=== PATIENT | female | born 1970 | race Caucasian/White ===

== ENCOUNTER 2017-11-20 18:26 | Emergency (ER) | payer OTHER ==
[2017-11-20 18:42] VITALS: BP 133/73
--- NOTE | 2017-11-20 19:15 | EDM.PDOC ---
ED HPI GENERAL MEDICAL PROBLEM - General Chief Complaint: Allergic Reaction Stated Complaint: allergic reaction Time Seen by Provider: 11/20/17 18:48 Source of Information: Reports: Patient History Limitations: Reports: No Limitations - History of Present Illness INITIAL COMMENTS - FREE TEXT/NARRATIVE: Patient is a 47-year-old female who came in with possible allergic reaction she complains of hives and itching throughout her body especially the back and arms this was probably caused by lexus wine or lip balm she has never used these products before took some Benadryl before coming in now feeling better still has some hives over her back and arms. Onset: Sudden Duration: Minutes:, Improving Location: Reports: Generalized Quality: Reports: Ache, Other (Itching) Severity: Moderate Improves with: Reports: Medication Worsens with: Reports: None Context: Reports: Activity Associated Symptoms: Reports: No Other Symptoms Generalized Pain Score (Numeric/FACES): 3 - Related Data Allergies Allergy/AdvReac Type Severity Reaction Status Date / Time kiwi Allergy Airway Verified 01/29/16 14:37 Tightness morphine Allergy Itching Verified 01/29/16 14:59 Penicillins Allergy Hives Verified 01/29/16 14:37 Home Meds: Home Meds Escitalopram [Lexapro] 20 mg PO DAILY 11/20/17 [History] Levothyroxine 25 mcg PO DAILY 11/20/17 [History] Past Medical History Neurological History: Reports: Head Trauma, Migraines Social & Family History - Tobacco Use Smoking Status *Q: Never Smoker - Recreational Drug Use Recreational Drug Use: No ED ROS ALLERGIC REACTION - Review of Systems Review Of Systems: See Below Constitutional: Reports: No Symptoms HEENT: Reports: No Symptoms Respiratory: Reports: No Symptoms Cardiovascular: Reports: No Symptoms Endocrine: Reports: No Symptoms GI/Abdominal: Reports: No Symptoms : Reports: No Symptoms Musculoskeletal: Reports: No Symptoms Skin: Reports: No Symptoms Neurological: Reports: No Symptoms Psychiatric: Reports: No Symptoms Hematologic/Lymphatic: Reports: No Symptoms Immunologic: Reports: No Symptoms ED EXAM GENERAL NO PERIP PULSE - Physical Exam Exam: See Below Exam Limited By: No Limitations General Appearance: Alert, WD/WN, No Apparent Distress Ears: Normal External Exam, Normal Canal, Hearing Grossly Normal, Normal TMs Nose: Normal Inspection, Normal Mucosa, No Blood Throat/Mouth: Normal Inspection, Normal Lips, Normal Teeth, Normal Gums, Normal Oropharynx, Normal Voice, No Airway Compromise Head: Atraumatic, Normocephalic Neck: Normal Inspection, Supple, Non-Tender, Full Range of Motion Respiratory/Chest: No Respiratory Distress, Lungs Clear, Normal Breath Sounds, No Accessory Muscle Use, Chest Non-Tender Cardiovascular: Normal Peripheral Pulses, Regular Rate, Rhythm, No Edema, No Gallop, No JVD, No Murmur, No Rub GI/Abdominal: Normal Bowel Sounds, Soft, Non-Tender, No Organomegaly, No Distention, No Abnormal Bruit, No Mass (Female) Exam: Deferred Rectal (Female) Exam: Deferred Back Exam: Other (Hives) Extremities: Other (Bilateral upper and lower extremity hives) Neurological: Alert, Oriented, CN II-XII Intact, Normal Cognition, Normal Gait, Normal Reflexes, No Motor/Sensory Deficits Skin Exam: Rash, Other (High) Lymphatic: No Adenopathy Course - Vital Signs Last Recorded V/S: Last Vital Signs Temp 98.2 F 11/20/17 18:41 Pulse 64 11/20/17 18:41 Resp 18 11/20/17 18:41 BP 133/73 11/20/17 18:41 Pulse Ox 99 11/20/17 18:41 Departure - Departure Time of Disposition: 19:18 Disposition: Home, Self-Care 01 Clinical Impression: Allergic reaction - Discharge Information Referrals: Beni Gamez MD [Primary Care Provider] - Care Plan Goals: Patient sent home on prednisone 20 twice a day for 5 days she is to follow-up with me in the office if not better return to the ER if worsening
== END 2017-11-20 19:31 | disposition home or self-care (01) ==
LOC: LL.ED 18:26
DX: T78.40XA Allergy, unspecified, initial encounter (principal); Z88.5 Allergy status to narcotic agent; Z88.0 Allergy status to penicillin; Z79.899 Other long term (current) drug therapy; X58.XXXA Exposure to other specified factors, initial encounter
CPT/HCPCS: 99283

== ENCOUNTER 2018-02-07 21:22 | Emergency (ER) | payer OTHER ==
[2018-02-07] MEDS ORDERED: Sodium Chloride 0.9% 10 ML Syringe FLUSH PRN (21:24)
[2018-02-07] MEDS ORDERED: Sodium Chloride 0.9% 1,000 ML IV ONE ×2 (21:36→23:27)
[2018-02-07] MEDS ORDERED: HYDROmorphone 1 MG/ML Syringe IVPUSH ONE (21:41)
[2018-02-07] MEDS ORDERED: diphenhydrAMINE 50 MG/ML SDV IVPUSH ONE (21:41)
[2018-02-07] MEDS ORDERED: Ondansetron 4 MG/2 ML SDV IVPUSH ONE (21:42)
--- NOTE | 2018-02-07 21:48 | EDM.PDOC ---
ED HPI GENERAL MEDICAL PROBLEM - General Chief Complaint: General Stated Complaint: abdominal pain that radiates through to back Time Seen by Provider: 02/07/18 21:23 Source of Information: Reports: Patient History Limitations: Reports: No Limitations - History of Present Illness INITIAL COMMENTS - FREE TEXT/NARRATIVE: Sudden severe abdominal pain that started around 5pm tonight. Generalized in nature. Radiates to back. Nausea present. No vomiting. Has had feeling of being more constipated recently, but has had a few soft stools over the last few days. Recent trip to [place]. Does say that she has had intermittent similar pain episodes like this in the past. None as severe as this one. Was seen once in the ER and at that time it was thought to possibly be musculo-skeletal in nature. Some episodes have lasted for several days. Has gallbadder but has had appendectomy and hysterectomy. Past medical history significant for depression/migraines. Has noted that some foods such as caba have set off heartburn like sensation and abdominal pain. Feels best when she lays on her side. Worse on her back. No fever. No changes. midline abdomen Pain Score (Numeric/FACES): 10 - Related Data Allergies Allergy/AdvReac Type Severity Reaction Status Date / Time fentanyl Allergy Itching Verified 02/08/18 00:37 kiwi Allergy Airway Verified 02/07/18 21:24 Tightness morphine Allergy Itching Verified 02/07/18 21:24 Penicillins Allergy Hives Verified 02/07/18 21:24 Home Meds: Home Meds Escitalopram [Lexapro] 20 mg PO DAILY 11/20/17 [History] Levothyroxine 25 mcg PO DAILY 11/20/17 [History] PNV95/Ferrous Fumarate/FA [ Tablet] 1 each PO DAILY 02/07/18 [History] Past Medical History Neurological History: Reports: Head Trauma, Migraines Psychiatric History: Reports: Depression Endocrine/Metabolic History: Reports: Hypothyroidism Social & Family History - Family History Family Medical History: Noncontributory Cardiac: Reports: CAD (maternal grandmother), [place] (maternal grandmother) - Tobacco Use Smoking Status *Q: Never Smoker - Recreational Drug Use Recreational Drug Use: No ED ROS GENERAL - Review of Systems Review Of Systems: See Below Constitutional: Reports: Decreased Appetite. Denies: Fever, Chills, Weakness, Fatigue, Diaphoresis, Weight Loss, Weight Gain HEENT: Reports: No Symptoms Respiratory: Reports: No Symptoms. Denies: Shortness of Breath, Pleuritic Chest Pain Cardiovascular: Reports: No Symptoms. Denies: Chest Pain, Dyspnea on Exertion, Lightheadedness GI/Abdominal: Reports: Abdominal Pain, Constipation, Decreased Appetite, Nausea. Denies: Black Stool, Bloody Stool, Diarrhea, Difficulty Swallowing, Distension, Flatus, Hematemesis, Vomiting : Reports: No Symptoms Musculoskeletal: Reports: No Symptoms Skin: Reports: No Symptoms Neurological: Reports: No Symptoms Psychiatric: Reports: No Symptoms Hematologic/Lymphatic: Reports: No Symptoms Immunologic: Reports: No Symptoms ED EXAM, GENERAL - Physical Exam Exam: See Below Exam Limited By: No Limitations General Appearance: Alert, Severe Distress Eye Exam: Bilateral Eye: EOMI, PERRL Ears: Normal External Exam, Normal Canal Nose: Normal Inspection Throat/Mouth: Normal Inspection, Normal Voice, No Airway Compromise Head: Atraumatic, Normocephalic Neck: Normal Inspection, Supple, Non-Tender, Full Range of Motion. No: Lymphadenopathy (L), Lymphadenopathy (R) Respiratory/Chest: No Respiratory Distress, Lungs Clear, Normal Breath Sounds, No Accessory Muscle Use, Chest Non-Tender Cardiovascular: Normal Peripheral Pulses, Regular Rate, Rhythm, No Edema, No Murmur Peripheral Pulses: 2+: Radial (L), Radial (R) GI/Abdominal: Soft, Tender (Very tender all 4 quadrants, more so epigastric and left upper quadrant. ). No: Guarding, Rigid, Rebound (Female) Exam: Deferred Rectal (Female) Exam: Deferred Back Exam: Normal Inspection. No: CVA Tenderness (L), CVA Tenderness (R), Muscle Spasm, Paraspinal Tenderness, Vertebral Tenderness Extremities: Normal Inspection, Normal Range of Motion, Non-Tender, No Pedal Edema, Normal Capillary Refill Neurological: Alert, Oriented, Normal Cognition, Normal Gait, No Motor/Sensory Deficits Psychiatric: Anxious Skin Exam: Warm, Dry, Intact, Normal Color EKG INTERPRETATION EKG Date: 02/07/18 Time: 21:48 Rhythm: Other (sinus bradycardia) Rate (Beats/Min): 58 [place]: Normal P-Wave: Present QRS: Normal ST-T: Normal QT: Normal Comparison: NA - No Prior EKG Course - Vital Signs Last Recorded V/S: Last Vital Signs Temp 36.6 C 02/07/18 21:29 Pulse 68 02/07/18 21:29 Resp 9 L 02/07/18 21:29 BP 180/100 H 02/07/18 21:29 Pulse Ox 100 02/07/18 21:29 - Orders/Labs/Meds Orders: Active Orders 24 hr Category Date Time Status EKG Documentation Completion [RC] ASDIRECTED Care 02/07/18 21:40 Active Abdomen Pelvis w Cont [CT] Stat Exams 02/07/18 21:40 Taken Sodium Chloride 0.9% [Normal Saline] 1,000 ml Med 02/07/18 23:27 Active IV .BOLUS Sodium Chloride 0.9% [Saline Flush] Med 02/07/18 21:24 Active 10 ml FLUSH ASDIRECTED PRN Saline Lock Insert [OM.PC] Routine Oth 02/07/18 21:25 Ordered Medication Orders Sodium Chloride (Normal Saline) 1,000 mls @ 125 mls/hr IV .BOLUS ONE Stop: 02/08/18 07:26 Last Admin: 02/07/18 23:49 Dose: 125 mls/hr Sodium Chloride (Saline Flush) 10 ml FLUSH ASDIRECTED PRN PRN Reason: Keep Vein Open Labs: Laboratory Tests 02/07/18 02/07/18 02/07/18 Range/Units 21:30 21:30 21:30 WBC 8.8 (4.0-10.2) K/uL RBC 4.25 (3.77-5.09) M/uL Hgb 13.4 (11.7-15.5) g/dL Hct 38.3 (34.0-46.0) % MCV 90.1 (84.0-98.0) fL MCH 31.5 (28.2-33.3) pg MCHC 35.0 (31.7-36.0) g/dL RDW 11.7 (11.2-14.1) % Plt Count 203 (150-350) K/uL Neut % (Auto) 65.0 (45.0-80.0) % Lymph % (Auto) 26.6 (10.0-50.0) % Ralls % (Auto) 7.6 (2.0-14.0) % Eos % (Auto) 0.7 (0.0-5.0) % Baso % (Auto) 0.1 (0.0-2.0) % Neut # (Auto) 5.71 (1.40-7.00) K/uL Lymph # (Auto) 2.34 (0.50-3.50) K/uL Ralls # (Auto) 0.67 (0.00-1.00) K/uL Eos # (Auto) 0.06 (0.00-0.50) K/uL Baso # (Auto) 0.01 (0.00-0.20) K/uL Sodium 141 (136-145) mmol/L Potassium 4.1 (3.5-5.1) mmol/L Chloride 105 (98-107) mmol/L Carbon Dioxide 28.3 (21.0-32.0) mmol/L BUN 19 H (7-18) mg/dL Creatinine 0.78 (0.51-1.17) mg/dL Est Cr Clr Drug Dosing 70.38 mL/min Estimated GFR (MDRD) > 60 mL/min Glucose 80 (74-106) mg/dL Calcium 9.0 (8.5-10.1) mg/dL Total Bilirubin 0.5 (0.2-1.0) mg/dL AST 18 (15-37) U/L ALT 28 (12-78) U/L Alkaline Phosphatase 37 L (46-116) IU/L Total Protein 7.4 (6.4-8.2) g/dL Albumin 4.1 (3.4-5.0) g/dL Amylase 41 (25-115) U/L Lipase 125 (73-393) U/L Specimen Type Urine Color Urine Appearance Urine pH (5.0-9.0) Ur Specific [place] (1.005-1.030) Urine Protein (NEGATIVE) mg/dL Urine Glucose (UA) (NEGATIVE) mg/dL Urine Ketones (NEGATIVE) mg/dL Urine Occult Blood (NEGATIVE) Urine Nitrite (NEGATIVE) Urine Bilirubin (NEGATIVE) Urine Urobilinogen (0.2-1.0) E.U./dL Ur Leukocyte Esterase (NEGATIVE) Urine RBC /HPF Urine WBC /HPF Ur Epithelial Cells /LPF Urine Bacteria (NONE TO FEW) /HPF 02/07/18 Range/Units 23:12 WBC (4.0-10.2) K/uL RBC (3.77-5.09) M/uL Hgb (11.7-15.5) g/dL Hct (34.0-46.0) % MCV (84.0-98.0) fL MCH (28.2-33.3) pg MCHC (31.7-36.0) g/dL RDW (11.2-14.1) % Plt Count (150-350) K/uL Neut % (Auto) (45.0-80.0) % Lymph % (Auto) (10.0-50.0) % Ralls % (Auto) (2.0-14.0) % Eos % (Auto) (0.0-5.0) % Baso % (Auto) (0.0-2.0) % Neut # (Auto) (1.40-7.00) K/uL Lymph # (Auto) (0.50-3.50) K/uL Ralls # (Auto) (0.00-1.00) K/uL Eos # (Auto) (0.00-0.50) K/uL Baso # (Auto) (0.00-0.20) K/uL Sodium (136-145) mmol/L Potassium (3.5-5.1) mmol/L Chloride (98-107) mmol/L Carbon Dioxide (21.0-32.0) mmol/L BUN (7-18) mg/dL Creatinine (0.51-1.17) mg/dL Est Cr Clr Drug Dosing mL/min Estimated GFR (MDRD) mL/min Glucose (74-106) mg/dL Calcium (8.5-10.1) mg/dL Total Bilirubin (0.2-1.0) mg/dL AST (15-37) U/L ALT (12-78) U/L Alkaline Phosphatase (46-116) IU/L Total Protein (6.4-8.2) g/dL Albumin (3.4-5.0) g/dL Amylase (25-115) U/L Lipase (73-393) U/L Specimen Type Urincc Urine Color Yellow Urine Appearance Clear Urine pH 6.5 (5.0-9.0) Ur Specific [place] 1.015 (1.005-1.030) Urine Protein Negative (NEGATIVE) mg/dL Urine Glucose (UA) Negative (NEGATIVE) mg/dL Urine Ketones Negative (NEGATIVE) mg/dL Urine Occult Blood Negative (NEGATIVE) Urine Nitrite Negative (NEGATIVE) Urine Bilirubin Negative (NEGATIVE) Urine Urobilinogen 0.2 (0.2-1.0) E.U./dL Ur Leukocyte Esterase Negative (NEGATIVE) Urine RBC Not seen /HPF Urine WBC 0-5 /HPF Ur Epithelial Cells Moderate H /LPF Urine Bacteria Few (NONE TO FEW) /HPF Meds: Medications Generic Name Dose Route Start Last Admin Trade Name Freq PRN Reason Stop Dose Admin Sodium Chloride 1,000 mls @ 125 mls/hr 02/07/18 23:27 02/07/18 23:49 Normal Saline IV 02/08/18 07:26 125 mls/hr .BOLUS ONE Administration Sodium Chloride 10 ml 02/07/18 21:24 Saline Flush FLUSH ASDIRECTED PRN Keep Vein Open Discontinued Medications Generic Name Dose Route Start Last Admin Trade Name Freq PRN Reason Stop Dose Admin Diphenhydramine HCl 50 mg 02/07/18 21:41 02/07/18 21:44 Benadryl IVPUSH 02/07/18 21:42 50 mg ONETIME ONE Administration Fentanyl 100 mcg 02/07/18 23:18 02/07/18 23:49 Sublimaze IVPUSH 02/07/18 23:19 100 mcg ONETIME ONE Administration Hydromorphone HCl 1 mg 02/07/18 21:41 02/07/18 21:44 Dilaudid IVPUSH 02/07/18 21:42 1 mg ONETIME ONE Administration Sodium Chloride 1,000 mls @ 999 mls/hr 02/07/18 21:36 02/07/18 21:42 Normal Saline IV 02/07/18 22:36 999 mls/hr .BOLUS ONE Administration Iopamidol 100 ml 02/07/18 23:00 02/07/18 23:08 Isovue-300 (61%) IVPUSH 02/07/18 23:01 100 ml ONETIME ONE Administration Methylprednisolone Sodium Succinate 125 mg 02/08/18 00:19 Solu-Medrol IVPUSH 02/08/18 00:20 ONETIME ONE Ondansetron HCl 4 mg 02/07/18 21:42 02/07/18 21:44 Zofran IVPUSH 02/07/18 21:43 4 mg ONETIME ONE Administration - Re-Assessments/Exams Free Text/Narrative Re-Assessment/Exam: 02/07/18 21:52 IV access obtained. Patient has had morphine in past, causes her to feel like she has insects crawling on her skin. Says she can tolerate Dilaudid. Given her level of discomfort single dose of Dilaudid ordered as well as Benadryl, Zofran. Abdominal and pelvic CT ordered. Free Text/Narrative Re-Assessment/Exam: 02/08/18 00:[address] negative for acute changes except for common bile duct being slightly prominent in size. CBC/Chem/UA unremarkable. Pain improved, but developed some pruritis from Fentanyl. Had tolerated the earlier dose of Dilaudid well however. Patient would like to go home and has an appointment to see tomorrow at clinic. She may benefit from referral to GI specialist to decide if further workup is needed. Discussed considering elimination diet to look for additional triggers for her episodes. Patient is agreeable with plan. Given Solumedrol prior to discharge to help with itching. Precautions reviewed prior to discharge. She is to follow up as needed otherwise if problems develop. Departure - Departure Time of Disposition: 01:00 Disposition: Home, Self-Care 01 Condition: Good Clinical Impression: Generalized abdominal pain of unknown etiology - Discharge Information Instructions: Abdominal Pain, Adult Forms: ED Department Discharge Additional Instructions: Follow up with tomorrow at your scheduled appointment. Discuss possible referral to GI specialist to review your abdominal pain episodes as well as mildly prominent common bile duct. Consider elimination diet as discussed to look for possible food triggers for your episodes. Follow up otherwise as needed if you develop additional problems. - My Orders Last 24 Hours: My Active Orders 02/07/18 21:24 Sodium Chloride 0.9% [Saline Flush] 10 ml FLUSH ASDIRECTED PRN 02/07/18 21:25 Saline Lock Insert [OM.PC] Routine 02/07/18 21:40 EKG Documentation Completion [RC] ASDIRECTED Abdomen Pelvis w Cont [CT] Stat 02/07/18 23:27 Sodium Chloride 0.9% [Normal Saline] 1,000 ml IV .BOLUS - Assessment/Plan Last 24 Hours: My Active Orders 02/07/18 21:24 Sodium Chloride 0.9% [Saline Flush] 10 ml FLUSH ASDIRECTED PRN 02/07/18 21:25 Saline Lock Insert [OM.PC] Routine 02/07/18 21:40 EKG Documentation Completion [RC] ASDIRECTED Abdomen Pelvis w Cont [CT] Stat 02/07/18 23:27 Sodium Chloride 0.9% [Normal Saline] 1,000 ml IV .BOLUS
[2018-02-07 22:01] LABS: CHLORIDE,CL 105 mmol/L (98-107); SODIUM,NA 141 mmol/L (136-145)
[2018-02-07] MEDS ORDERED: Iopamidol 612 MG/ML 100 ML Bottle IVPUSH ONE (23:00)
[2018-02-07] MEDS ORDERED: fentaNYL 100 MCG/2 ML SDV IVPUSH ONE (23:18)
[2018-02-08] MEDS ORDERED: methylPREDNISolone Sodium Succinate 125 MG/2 ML SDV IVPUSH ONE (00:19)
[2018-02-08 04:05] VITALS: BP 161/87
== END 2018-02-08 01:13 | disposition home or self-care (01) ==
LOC: LL.ED 21:22
DX: R10.84 Generalized abdominal pain (principal); E03.9 Hypothyroidism, unspecified; F32.9 Major depressive disorder, single episode, unspecified; Z79.899 Other long term (current) drug therapy; Z88.0 Allergy status to penicillin; Z88.5 Allergy status to narcotic agent; Z91.018 Allergy to other foods
CPT/HCPCS: 36415; 74177; 80053; 81001; 82150; 83690; 85025; 93005; 96361; 96374; 96375; 99284; J1170; J1200; J2405; J2930; J3010; J7030; J7050; Q9967

== ENCOUNTER 2018-03-30 08:03 | Day surgery (SDC) | payer OTHER ==
[~2018-03-30 08:03] MED LIST: Sodium Chloride 0.9% 10 ML Syringe FLUSH PRN
[2018-03-30] MEDS ORDERED: Propofol 200 MG/20 ML SDV ONE ×2 (08:37→09:05)
[2018-03-30] MEDS ORDERED: Midazolam 1 MG/ML 2 ML SDV ONE ×2 (08:37→09:05)
[2018-03-30] MEDS ORDERED: fentaNYL 250 MCG/5 ML SDV ONE ×2 (08:37→09:05)
[2018-03-30] MEDS: Lactated Ringers 1,000 ML IV SCH ×2 (08:49→11:51)
[2018-03-30] MEDS ORDERED: Dexamethasone 10 MG/ML SDV ONE (09:05)
[2018-03-30] MEDS ORDERED: Esmolol 100 MG/10 ML SDV ONE (09:05)
[2018-03-30] MEDS ORDERED: Succinylcholine 200 MG/10 ML MDV ONE (09:05)
[2018-03-30] MEDS ORDERED: Glycopyrrolate 0.2 MG/ML SDV ONE (09:05)
[2018-03-30] MEDS ORDERED: Ondansetron 4 MG/2 ML SDV ONE (09:05)
[2018-03-30] MEDS ORDERED: Rocuronium 100 MG/10 ML MDV ONE (09:05)
[2018-03-30] MEDS ORDERED: Neostigmine Methylsulfate 10 MG/10 ML MDV ONE (09:05)
--- NOTE | 2018-03-30 09:15 | PCM.HPR ---
H & P Addendum review - H & P Addendum Review Date of Original H & P: 03/02/18 Date Reviewed: 03/30/18 Time Reviewed: 09:00 Patient was Examined: No Changes
[2018-03-30] MEDS ORDERED: Ondansetron 4 MG/2 ML SDV IVPUSH PRN (10:08)
[2018-03-30] MEDS ORDERED: Meperidine PF 50 MG/ML Syringe IVPUSH ONE (10:08)
--- NOTE | 2018-03-30 10:32 | PCM.OPNOTE ---
- General Post-Op/Procedure Note Date of Surgery/Procedure: 03/30/18 Operative Procedure(s): Lap Whit Findings: Chronic Cholecystitis Pre Op Diagnosis: Chronic Cholecystitis Post-Op Diagnosis: Same Anesthesia Technique: General ET Tube Primary Surgeon: Amador Vega Anesthesia Provider: Elina Holliday EBL in mLs: 10 Complications: None Free Text/Narrative:: Intake & Output 03/29/18 03/30/18 03/30/18 22:59 06:59 14:59 Intake Total 1000 Balance 1000
[2018-03-30] MEDS ORDERED: Ketorolac 15 MG/ML SDV IVPUSH ONE (12:34)
[2018-03-30 12:53] VITALS: BP 135/73
--- NOTE | 2018-03-30 14:19 | OR ---
Date of Procedure: 03/30/2018 PREOPERATIVE DIAGNOSIS: Chronic cholecystitis. POSTOPERATIVE DIAGNOSIS: Chronic cholecystitis. PROCEDURE: Laparoscopic cholecystectomy. ANESTHESIA: General. DESCRIPTION OF PROCEDURE: The patient was brought to the operating room where general endotracheal anesthesia was administered. The abdomen was prepped with ChloraPrep and draped sterilely. An infraumbilical incision was made and extended into the peritoneal cavity without difficulty. The Claudio cannulator was introduced and pneumoperitoneum obtained. The remaining three 5 mm ports were placed in the usual positions. The patient was placed in reverse Trendelenburg position and rotated to the left. The gallbladder was grasped and retracted cephalad. The cystic duct and cystic artery were dissected free with some difficulty because of fibrosis. Once the cystic artery was isolated, this was doubly clipped proximally and once distally and then transected. Further dissection isolated the cystic duct and we could be seen entering the gallbladder and extending towards the common bile duct. This was doubly clipped proximally, once distally and then transected. The gallbladder was then removed from the bed of the liver using electrocautery with minimal difficulty. There was some oozing near the base that was controlled with cautery. The posterior branch of the cystic artery was doubly clipped proximally and cauterized distally. Once the gallbladder was completely freed up, was brought out through the umbilical incision. The surgical sites were inspected and there continued to be minimal oozing around the clips on the cystic duct. I did not cauterize in this area and rather packed a piece of Surgicel, which resulted in good hemostasis. Ports were removed under direct vision and remained hemostatic. The rest of the general exploration revealed the surface of the liver, stomach, omentum, visible bowel, and peritoneal surfaces all to be normal in appearance. The ports were removed under direct vision and remained hemostatic. Umbilical fascia was closed with [id number] 0 Vicryl. Skin was closed with 4-0 Vicryl subcuticular sutures. Benzoin and Steri-Strips were placed and Band-Aids applied. The patient tolerated the procedure well. Estimated blood loss was 10 mL. She returned to Postanesthesia in stable condition. MEHDI SANTIAGO MD /[id number]
== END 2018-03-30 14:50 | disposition home or self-care (01) ==
LOC: LL.SDS 08:03
PROVIDERS: ATTEND Surgery
DX: K81.1 Chronic cholecystitis (principal); F41.9 Anxiety disorder, unspecified; F32.9 Major depressive disorder, single episode, unspecified; Z79.899 Other long term (current) drug therapy; Z88.5 Allergy status to narcotic agent; Z88.0 Allergy status to penicillin
CPT/HCPCS: J0330; J1100; J1885; J2175; J2250; J2405; J2704; J2710; J3010; J7050; J7120

== ENCOUNTER 2018-06-13 21:56 | Emergency (ER) | payer OTHER ==
[2018-06-13] MEDS: Sodium Chloride 0.9% 1,000 ML IV SCH (22:08)
--- NOTE | 2018-06-13 22:13 | EDM.PDOC ---
ED HPI GENERAL MEDICAL PROBLEM - General Chief Complaint: Gastrointestinal Problem Stated Complaint: CABRERA,VOMITING,HTN Time Seen by Provider: 06/13/18 22:00 Source of Information: Reports: Patient History Limitations: Reports: No Limitations - History of Present Illness INITIAL COMMENTS - FREE TEXT/NARRATIVE: PT is a 47-year-old who was brought in by herself for evaluation evaluation of nausea headaches felt that her head was under a bucket of water her blood pressure was 171/110 at work so she decided to come in Onset: Today Duration: Hour(s):, Getting Worse (Patient had multiple emesis in the ER) Location: Reports: Head, Abdomen Quality: Reports: Ache Severity: Moderate Improves with: Reports: Other (After emesis) Worsens with: Reports: None Context: Reports: Sick Contact Associated Symptoms: Reports: Nausea/Vomiting, Weakness - Related Data Allergies Allergy/AdvReac Type Severity Reaction Status Date / Time fentanyl Allergy Itching Verified 03/30/18 08:38 kiwi Allergy Airway Verified 03/30/18 08:38 Tightness morphine Allergy Itching Verified 03/30/18 08:38 Penicillins Allergy Hives Verified 03/30/18 08:38 Home Meds: Home Meds Escitalopram [Lexapro] 20 mg PO DAILY 11/20/17 [History] Levothyroxine 25 mcg PO DAILY 11/20/17 [History] PNV95/Ferrous Fumarate/FA [ Tablet] 1 each PO DAILY 02/07/18 [History] buPROPion HCl [Wellbutrin Xl] 150 mg PO DAILY 03/29/18 [History] Past Medical History HEENT History: Reports: Other (See Below) Other HEENT History: wears glasses Cardiovascular History: Reports: None Respiratory History: Reports: None Musculoskeletal History: Reports: None Neurological History: Reports: None Psychiatric History: Reports: Depression Endocrine/Metabolic History: Reports: None Hematologic History: Reports: None Immunologic History: Reports: None Oncologic (Cancer) History: Reports: None Dermatologic History: Reports: None - Past Surgical History Female Surgical History: Reports: Tubal Ligation Social & Family History - Family History Family Medical History: Noncontributory Cardiac: Reports: CAD (maternal grandmother), [place] (maternal grandmother) - Caffeine Use Caffeine Use: Reports: Coffee ED ROS GENERAL - Review of Systems Review Of Systems: See Below ED EXAM, GENERAL - Physical Exam Exam: See Below Exam Limited By: No Limitations General Appearance: Alert, WD/WN, No Apparent Distress Eye Exam: Bilateral Eye: EOMI, PERRL Ears: Normal External Exam, Normal Canal, Hearing Grossly Normal, Normal TMs Nose: Normal Inspection, Normal Mucosa, No Blood Throat/Mouth: Normal Inspection, Normal Lips, Normal Teeth, Normal Gums, Normal Oropharynx, Normal Voice, No Airway Compromise Head: Atraumatic, Normocephalic Neck: Normal Inspection, Supple, Non-Tender, Full Range of Motion Respiratory/Chest: No Respiratory Distress, Lungs Clear, Normal Breath Sounds, No Accessory Muscle Use, Chest Non-Tender Cardiovascular: Normal Peripheral Pulses, Regular Rate, Rhythm, No Edema, No Gallop, No JVD, No Murmur, No Rub GI/Abdominal: Normal Bowel Sounds, Soft, Non-Tender, No Organomegaly, No Distention, No Abnormal Bruit, No Mass (Female) Exam: Deferred Rectal (Female) Exam: Deferred Back Exam: Normal Inspection, Full Range of Motion, NT Extremities: Normal Inspection, Normal Range of Motion, Non-Tender, Normal Capillary Refill, No Pedal Edema Neurological: Alert, Oriented, CN II-XII Intact, Normal Cognition, Normal Gait, Normal Reflexes, No Motor/Sensory Deficits Psychiatric: Normal Affect, Normal Mood Course - Orders/Labs/Meds Orders: Active Orders 24 hr Category Date Time Status Abdomen 2V AP Flat Upright [CR] Stat Exams 06/13/18 22:10 Ordered Sodium Chloride 0.9% @ 150 MLS/HR (1000ml) Med 06/13/18 22:15 Ordered Sodium Chloride 0.9% [Normal Saline] 1,000 ml IV ASDIRECTED Medication Orders Sodium Chloride (Normal Saline) 1,000 mls @ 150 mls/hr IV ASDIRECTED GABINO Last Admin: 06/13/18 22:08 Dose: 250 mls/hr Labs: Laboratory Tests 06/13/18 06/13/18 Range/Units 22:04 22:06 WBC 10.8 H (4.0-10.2) K/uL RBC 4.46 (3.77-5.09) M/uL Hgb 14.0 (11.7-15.5) g/dL Hct 40.1 (34.0-46.0) % MCV 89.9 (84.0-98.0) fL MCH 31.4 (28.2-33.3) pg MCHC 34.9 (31.7-36.0) g/dL RDW 12.2 (11.2-14.1) % Plt Count 194 (150-350) K/uL Neut % (Auto) 57.8 (45.0-80.0) % Lymph % (Auto) 29.5 (10.0-50.0) % Traverse % (Auto) 10.7 (2.0-14.0) % Eos % (Auto) 1.8 (0.0-5.0) % Baso % (Auto) 0.2 (0.0-2.0) % Neut # (Auto) 6.26 (1.40-7.00) K/uL Lymph # (Auto) 3.19 (0.50-3.50) K/uL Traverse # (Auto) 1.16 H (0.00-1.00) K/uL Eos # (Auto) 0.20 (0.00-0.50) K/uL Baso # (Auto) 0.02 (0.00-0.20) K/uL Sodium 142 (136-145) mmol/L Potassium 3.7 (3.5-5.1) mmol/L Chloride 103 (98-107) mmol/L Carbon Dioxide 28.5 (21.0-32.0) mmol/L BUN 20 H (7-18) mg/dL Creatinine 0.81 (0.51-1.17) mg/dL Est Cr Clr Drug Dosing TNP Estimated GFR (MDRD) > 60 mL/min Glucose 119 H (74-106) mg/dL Calcium 9.2 (8.5-10.1) mg/dL Total Bilirubin 0.3 (0.2-1.0) mg/dL AST 14 L (15-37) U/L ALT 29 (12-78) U/L Alkaline Phosphatase 44 L (46-116) IU/L Total Protein 7.9 (6.4-8.2) g/dL Albumin 4.1 (3.4-5.0) g/dL TSH, Ultra Sensitive 2.600 (0.358-3.740) mIU/mL Meds: Medications Generic Name Dose Route Start Last Admin Trade Name Freq PRN Reason Stop Dose Admin Sodium Chloride 1,000 mls @ 150 mls/hr 06/13/18 22:15 06/13/18 22:08 Normal Saline IV 250 mls/hr ASDIRECTED GABINO Administration Discontinued Medications Generic Name Dose Route Start Last Admin Trade Name Deb PRN Reason Stop Dose Admin Ondansetron HCl 8 mg 06/13/18 22:12 06/13/18 22:18 Zofran IVPUSH 06/13/18 22:13 8 mg ONETIME ONE Administration Departure - Departure Time of Disposition: 23:25 Disposition: Home, Self-Care 01 Condition: Fair, Poor Clinical Impression: Gastroenteritis, Vomiting Hypertension Qualifiers: Hypertension type: essential hypertension Qualified Code(s): I10 - Essential ( primary) hypertension - Discharge Information *PRESCRIPTION DRUG MONITORING PROGRAM REVIEWED*: No *COPY OF PRESCRIPTION DRUG MONITORING REPORT IN PATIENT ANA: No Referrals: Beni Gamez MD [Primary Care Provider] - Forms: ED Department Discharge Additional Instructions: Will send patient home on soften for her nausea vomiting and gastroenteritis will give her Ativan 1 mg the sole capsule sublingual Care Plan Goals: ED HPI GENERAL MEDICAL PROBLEM - General Chief Complaint: Gastrointestinal Problem Stated Complaint: CABRERA,VOMITING,HTN Time Seen by Provider: 06/13/18 22:00 Source of Information: Reports: Patient History Limitations: Reports: No Limitations - History of Present Illness INITIAL COMMENTS - FREE TEXT/NARRATIVE: PT is a 47-year-old who was brought in by herself for evaluation evaluation of nausea headaches felt that her head was under a bucket of water her blood pressure was 171/110 at work so she decided to come in Onset: Today Duration: Hour(s):, Getting Worse (Patient had multiple emesis in the ER) Location: Reports: Head, Abdomen Quality: Reports: Ache Severity: Moderate Improves with: Reports: Other (After emesis) Worsens with: Reports: None Context: Reports: Sick Contact Associated Symptoms: Reports: Nausea/Vomiting, Weakness - Related Data Allergies Allergy/AdvReac Type Severity Reaction Status Date / Time fentanyl Allergy Itching Verified 03/30/18 08:38 kiwi Allergy Airway Verified 03/30/18 08:38 Tightness morphine Allergy Itching Verified 03/30/18 08:38 Penicillins Allergy Hives Verified 03/30/18 08:38 Home Meds: Home Meds Escitalopram [Lexapro] 20 mg PO DAILY 11/20/17 [History] Levothyroxine 25 mcg PO DAILY 11/20/17 [History] PNV95/Ferrous Fumarate/FA [ Tablet] 1 each PO DAILY 02/07/18 [History] buPROPion HCl [Wellbutrin Xl] 150 mg PO DAILY 03/29/18 [History] Past Medical History HEENT History: Reports: Other (See Below) Other HEENT History: wears glasses Cardiovascular History: Reports: None Respiratory History: Reports: None Musculoskeletal History: Reports: None Neurological History: Reports: None Psychiatric History: Reports: Depression Endocrine/Metabolic History: Reports: None Hematologic History: Reports: None Immunologic History: Reports: None Oncologic (Cancer) History: Reports: None Dermatologic History: Reports: None - Past Surgical History Female Surgical History: Reports: Tubal Ligation Social & Family History - Family History Family Medical History: Noncontributory Cardiac: Reports: CAD (maternal grandmother), [place] (maternal grandmother) - Caffeine Use Caffeine Use: Reports: Coffee ED EXAM, GENERAL - Physical Exam Exam Limited By: No Limitations General Appearance: Alert, WD/WN, No Apparent Distress Eye Exam: Bilateral Eye: EOMI, PERRL Ears: Normal External Exam, Normal Canal, Hearing Grossly Normal, Normal TMs Nose: Normal Inspection, Normal Mucosa, No Blood Throat/Mouth: Normal Inspection, Normal Lips, Normal Teeth, Normal Gums, Normal Oropharynx, Normal Voice, No Airway Compromise Head: Atraumatic, Normocephalic Neck: Normal Inspection, Supple, Non-Tender, Full Range of Motion Respiratory/Chest: No Respiratory Distress, Lungs Clear, Normal Breath Sounds, No Accessory Muscle Use, Chest Non-Tender Cardiovascular: Normal Peripheral Pulses, Regular Rate, Rhythm, No Edema, No Gallop, No JVD, No Murmur, No Rub GI/Abdominal: Normal Bowel Sounds, Soft, Non-Tender, No Organomegaly, No Distention, No Abnormal Bruit, No Mass (Female) Exam: Deferred Rectal (Female) Exam: Deferred Back Exam: Normal Inspection, Full Range of Motion, NT Extremities: Normal Inspection, Normal Range of Motion, Non-Tender, Normal Capillary Refill, No Pedal Edema Neurological: Alert, Oriented, CN II-XII Intact, Normal Cognition, Normal Gait, Normal Reflexes, No Motor/Sensory Deficits Psychiatric: Normal Affect, Normal Mood Course - Orders/Labs/Meds Orders: Active Orders 24 hr Category Date Time Status CBC WITH AUTO DIFF [HEME] Stat Lab 06/13/18 22:04 Ordered CMP [COMPREHENSIVE METABOLIC PN,CMP] [CHEM] Stat Lab 06/13/18 22:06 Ordered TSH ULTRASENSITIVE [CHEM] Stat Lab 06/13/18 22:06 Ordered Sodium Chloride 0.9% @ 150 MLS/HR (1000ml) Med 06/13/18 22:15 Ordered Sodium Chloride 0.9% [Normal Saline] 1,000 ml IV ASDIRECTED Medication Orders Sodium Chloride (Normal Saline) 1,000 mls @ 150 mls/hr IV ASDIRECTED GABINO Meds: Medications Generic Name Dose Route Start Last Admin Trade Name Freq PRN Reason Stop Dose Admin Sodium Chloride 1,000 mls @ 150 mls/hr 06/13/18 22:15 Normal Saline IV ASDIRECTED GABINO Departure - Departure Condition: Poor Clinical Impression: Gastroenteritis Hypertension Qualifiers: Hypertension type: essential hypertension Qualified Code(s): I10 - Essential ( primary) hypertension - Discharge Information *PRESCRIPTION DRUG MONITORING PROGRAM REVIEWED*: No *COPY OF PRESCRIPTION DRUG MONITORING REPORT IN PATIENT ANA: No Referrals: Beni Gamez MD [Primary Care Provider] - - My Orders Last 24 Hours: My Active Orders 06/13/18 22:04 CBC WITH AUTO DIFF [HEME] Stat 06/13/18 22:06 CMP [COMPREHENSIVE METABOLIC PN,CMP] [CHEM] Stat TSH ULTRASENSITIVE [CHEM] Stat 06/13/18 22:15 Sodium Chloride 0.9% @ 150 MLS/HR (1000ml) Sodium Chloride 0.9% [Normal Saline] 1,000 ml IV ASDIRECTED - Assessment/Plan Last 24 Hours: My Active Orders 06/13/18 22:04 CBC WITH AUTO DIFF [HEME] Stat 06/13/18 22:06 CMP [COMPREHENSIVE METABOLIC PN,CMP] [CHEM] Stat TSH ULTRASENSITIVE [CHEM] Stat 06/13/18 22:15 Sodium Chloride 0.9% @ 150 MLS/HR (1000ml) Sodium Chloride 0.9% [Normal Saline] 1,000 ml IV ASDIRECTED ED HPI GENERAL MEDICAL PROBLEM - General Chief Complaint: Gastrointestinal Problem Stated Complaint: CABRERA,VOMITING,HTN Time Seen by Provider: 06/13/18 22:00 Source of Information: Reports: Patient History Limitations: Reports: No Limitations - History of Present Illness INITIAL COMMENTS - FREE TEXT/NARRATIVE: PT is a 47-year-old who was brought in by herself for evaluation evaluation of nausea headaches felt that her head was under a bucket of water her blood pressure was 171/110 at work so she decided to come in Onset: Today Duration: Hour(s):, Getting Worse (Patient had multiple emesis in the ER) Location: Reports: Head, Abdomen Quality: Reports: Ache Severity: Moderate Improves with: Reports: Other (After emesis) Worsens with: Reports: None Context: Reports: Sick Contact Associated Symptoms: Reports: Nausea/Vomiting, Weakness - Related Data Allergies Allergy/AdvReac Type Severity Reaction Status Date / Time fentanyl Allergy Itching Verified 03/30/18 08:38 kiwi Allergy Airway Verified 03/30/18 08:38 Tightness morphine Allergy Itching Verified 03/30/18 08:38 Penicillins Allergy Hives Verified 03/30/18 08:38 Home Meds: Home Meds Escitalopram [Lexapro] 20 mg PO DAILY 11/20/17 [History] Levothyroxine 25 mcg PO DAILY 11/20/17 [History] PNV95/Ferrous Fumarate/FA [ Tablet] 1 each PO DAILY 02/07/18 [History] buPROPion HCl [Wellbutrin Xl] 150 mg PO DAILY 03/29/18 [History] Past Medical History HEENT History: Reports: Other (See Below) Other HEENT History: wears glasses Cardiovascular History: Reports: None Respiratory History: Reports: None Musculoskeletal History: Reports: None Neurological History: Reports: None Psychiatric History: Reports: Depression Endocrine/Metabolic History: Reports: None Hematologic History: Reports: None Immunologic History: Reports: None Oncologic (Cancer) History: Reports: None Dermatologic History: Reports: None - Past Surgical History Female Surgical History: Reports: Tubal Ligation Social & Family History - Family History Family Medical History: Noncontributory Cardiac: Reports: CAD (maternal grandmother), [place] (maternal grandmother) - Caffeine Use Caffeine Use: Reports: Coffee ED EXAM, GENERAL - Physical Exam Exam Limited By: No Limitations General Appearance: Alert, WD/WN, No Apparent Distress Eye Exam: Bilateral Eye: EOMI, PERRL Ears: Normal External Exam, Normal Canal, Hearing Grossly Normal, Normal TMs Nose: Normal Inspection, Normal Mucosa, No Blood Throat/Mouth: Normal Inspection, Normal Lips, Normal Teeth, Normal Gums, Normal Oropharynx, Normal Voice, No Airway Compromise Head: Atraumatic, Normocephalic Neck: Normal Inspection, Supple, Non-Tender, Full Range of Motion Respiratory/Chest: No Respiratory Distress, Lungs Clear, Normal Breath Sounds, No Accessory Muscle Use, Chest Non-Tender Cardiovascular: Normal Peripheral Pulses, Regular Rate, Rhythm, No Edema, No Gallop, No JVD, No Murmur, No Rub GI/Abdominal: Normal Bowel Sounds, Soft, Non-Tender, No Organomegaly, No Distention, No Abnormal Bruit, No Mass (Female) Exam: Deferred Rectal (Female) Exam: Deferred Back Exam: Normal Inspection, Full Range of Motion, NT Extremities: Normal Inspection, Normal Range of Motion, Non-Tender, Normal Capillary Refill, No Pedal Edema Neurological: Alert, Oriented, CN II-XII Intact, Normal Cognition, Normal Gait, Normal Reflexes, No Motor/Sensory Deficits Psychiatric: Normal Affect, Normal Mood Course - Orders/Labs/Meds Orders: Active Orders 24 hr Category Date Time Status CBC WITH AUTO DIFF [HEME] Stat Lab 06/13/18 22:04 Ordered CMP [COMPREHENSIVE METABOLIC PN,CMP] [CHEM] Stat Lab 06/13/18 22:06 Ordered TSH ULTRASENSITIVE [CHEM] Stat Lab 06/13/18 22:06 Ordered Sodium Chloride 0.9% @ 150 MLS/HR (1000ml) Med 06/13/18 22:15 Ordered Sodium Chloride 0.9% [Normal Saline] 1,000 ml IV ASDIRECTED Medication Orders Sodium Chloride (Normal Saline) 1,000 mls @ 150 mls/hr IV ASDIRECTED [facility] Meds: Medications Generic Name Dose Route Start Last Admin Trade Name Freq PRN Reason Stop Dose Admin Sodium Chloride 1,000 mls @ 150 mls/hr 06/13/18 22:15 Normal Saline IV ASDIRECTED GABINO Departure - Departure Condition: Poor Clinical Impression: Gastroenteritis Hypertension Qualifiers: Hypertension type: essential hypertension Qualified Code(s): I10 - Essential ( primary) hypertension - Discharge Information *PRESCRIPTION DRUG MONITORING PROGRAM REVIEWED*: No *COPY OF PRESCRIPTION DRUG MONITORING REPORT IN PATIENT ANA: No Referrals: Beni Gamez MD [Primary Care Provider] - - My Orders Last 24 Hours: My Active Orders 06/13/18 22:04 CBC WITH AUTO DIFF [HEME] Stat 06/13/18 22:06 CMP [COMPREHENSIVE METABOLIC PN,CMP] [CHEM] Stat TSH ULTRASENSITIVE [CHEM] Stat 06/13/18 22:15 Sodium Chloride 0.9% @ 150 MLS/HR (1000ml) Sodium Chloride 0.9% [Normal Saline] 1,000 ml IV ASDIRECTED - Assessment/Plan Last 24 Hours: My Active Orders 06/13/18 22:04 CBC WITH AUTO DIFF [HEME] Stat 06/13/18 22:06 CMP [COMPREHENSIVE METABOLIC PN,CMP] [CHEM] Stat TSH ULTRASENSITIVE [CHEM] Stat 06/13/18 22:15 Sodium Chloride 0.9% @ 150 MLS/HR (1000ml) Sodium Chloride 0.9% [Normal Saline] 1,000 ml IV ASDIRECTED Patient labs were drawn CBC CMP TSH IV started Zofran given we'll repeat her blood pressure before giving her anything - My Orders Last 24 Hours: My Active Orders 06/13/18 22:10 Abdomen 2V AP Flat Upright [CR] Stat 06/13/18 22:15 Sodium Chloride 0.9% @ 150 MLS/HR (1000ml) Sodium Chloride 0.9% [Normal Saline] 1,000 ml IV ASDIRECTED - Assessment/Plan Last 24 Hours: My Active Orders 06/13/18 22:10 Abdomen 2V AP Flat Upright [CR] Stat 06/13/18 22:15 Sodium Chloride 0.9% @ 150 MLS/HR (1000ml) Sodium Chloride 0.9% [Normal Saline] 1,000 ml IV ASDIRECTED
[2018-06-13] MEDS: Ondansetron 4 MG/2 ML SDV IVPUSH ONE (22:18)
[2018-06-13 22:31] LABS: CHLORIDE,CL 103 mmol/L (98-107); SODIUM,NA 142 mmol/L (136-145)
[2018-06-13] MEDS: LORazepam 1 MG Tab PO ONE (23:28)
[2018-06-14 01:31] VITALS: BP 129/94
== END 2018-06-13 23:50 | disposition home or self-care (01) ==
LOC: LL.ED 21:56
DX: K52.9 Noninfective gastroenteritis and colitis, unspecified (principal); I10 Essential (primary) hypertension; Z88.5 Allergy status to narcotic agent; Z88.2 Allergy status to sulfonamides; Z88.8 Allergy status to other drugs, medicaments and biological substances; Z79.899 Other long term (current) drug therapy
CPT/HCPCS: 36415; 80053; 84443; 85025; 96361; 96374; 99284; A9270; J2405; J7030

== ENCOUNTER 2019-08-30 07:34 | Day surgery (SDC) | payer OTHER ==
[2019-08-30] MEDS ORDERED: Midazolam 1 MG/ML 2 ML SDV ONE ×2 (07:56→08:45)
[2019-08-30] MEDS ORDERED: Propofol 200 MG/20 ML SDV ONE ×2 (07:57→08:45)
[2019-08-30] MEDS: Lactated Ringers 1,000 ML IV SCH (07:58)
[2019-08-30] MEDS ORDERED: Ketamine 500 mg/10 ML MDV ONE ×2 (08:45→08:59)
[2019-08-30] MEDS ORDERED: diphenhydrAMINE 50 MG/ML SDV ONE (08:45)
--- NOTE | 2019-08-30 08:45 | PCM.HPR ---
H & P Addendum review - H & P Addendum Review Date of Original H & P: 08/02/19 Date Reviewed: 08/30/19 Time Reviewed: 08:45 Patient was Examined: No Changes
--- NOTE | 2019-08-30 09:44 | PCM.OPNOTE ---
- General Post-Op/Procedure Note Date of Surgery/Procedure: 08/30/19 Operative Procedure(s): Bilat CTR Pre Op Diagnosis: Bilat CTS Post-Op Diagnosis: Same Anesthesia Technique: Local, MAC Primary Surgeon: Amador Vega Anesthesia Provider: Elina Holliday EBAgatha in mLs: 0 Complications: None Condition: Good
[2019-08-30 10:08] VITALS: BP 172/78; PULSE 56
--- NOTE | 2019-08-31 09:30 | OR ---
Date of Procedure: 08/30/2019 PREOPERATIVE DIAGNOSIS: Bilateral carpal tunnel syndrome. POSTOPERATIVE DIAGNOSIS: Bilateral carpal tunnel syndrome. PROCEDURE: Bilateral carpal tunnel release. ANESTHESIA: Local with IV sedation. DESCRIPTION OF PROCEDURE: The patient was brought to the operating room where IV sedation was administered. Her right hand and forearm were exsanguinated and tourniquet inflated. ChloraPrep was used. Her hand was then sterilely draped. 3 mL of 1% lidocaine was used for local anesthesia and infiltrated in the palmar crease. An incision was made in the skin crease and extended to the palmar aponeurosis. Transverse carpal ligament was identified and sharply incised until the median nerve was visible. The ligament was then split distally into the palm and proximally into the wrist. Finger palpation and inspection reveals the band to be completely released. The wound was irrigated and closed with interrupted 4-0 Prolene vertical mattress sutures. Antibiotic ointment and a sterile bulky pressure dressing were applied. The patient tolerated this well. The left hand was then done in a similar fashion without difficulty. The same amount of local anesthesia was used. The same incision and closure were made. There was no blood loss on either hand. The patient tolerated the procedures well and returned to recovery in stable condition. MEHDI SANTIAGO MD /[id number]
== END 2019-08-30 10:56 | disposition home or self-care (01) ==
LOC: LL.SDS 07:34
PROVIDERS: ATTEND Surgery
DX: G56.03 Carpal tunnel syndrome, bilateral upper limbs (principal)
CPT/HCPCS: 81025; J1200; J2001; J2250; J2704; J7120

== ENCOUNTER 2024-08-11 22:32 | Emergency (ER) | payer OTHER ==
[2024-08-11 23:07] LABS: BASOPHILS ABSOLUTE AUTO 0.01 K/uL (0.00-0.20); BASOPHILS PERCENT AUTO 0.1 % (0.0-2.0); EOSINOPHILS PERCENT AUTO 0.9 % (0.0-5.0); HEMATOCRIT 38.4 % (34.0-46.0); HEMOGLOBIN 13.5 g/dL (11.7-15.5); LYMPHOCYTES ABSOLUTE AUTO 3.53 K/uL (0.50-3.50); LYMPHOCYTES PERCENT AUTO 32.7 % (10.0-50.0); MEAN CORPUSCULAR HEMOGLOBIN 31.3 pg (28.2-33.3); MEAN CORPUSCULAR HGB CONC 35.2 g/dL (31.7-36.0); MEAN CORPUSCULAR VOLUME 88.9 fL (84.0-98.0); MONOCYTES ABSOLUTE AUTO 0.95 K/uL (0.00-1.00); MONOCYTES PERCENT AUTO 8.8 % (2.0-14.0); NEUTROPHILS ABSOLUTE AUTO 6.21 K/uL (1.40-7.00); NEUTROPHILS PERCENT AUTO 57.5 % (45.0-80.0); PLATELET COUNT,PLT 244 K/uL (150-350); RED BLOOD CELL COUNT 4.32 M/uL (3.77-5.09); RED CELL DISTRIBUTION WIDTH 11.5 % (11.2-14.1); WHITE BLOOD CELL COUNT,WBC 10.8 K/uL (4.0-10.2)
[2024-08-11 23:09] LABS: APPEARANCE,URINE SLIGHTLY CLOUDY; BILIRUBIN,URINE NEGATIVE (NEGATIVE); COLOR,URINE YELLOW; GLUCOSE,URINE NEGATIVE (NEGATIVE); KETONES,URINE NEGATIVE (NEGATIVE); LEUKOCYTE ESTERASE,URINE NEGATIVE (NEGATIVE); NITRITE,URINE NEGATIVE (NEGATIVE); OCCULT BLOOD,URINE NEGATIVE (NEGATIVE); PROTEIN,URINE NEGATIVE (NEGATIVE); UROBILINOGEN,URINE 0.2 E.U./dL (0.2-1.0)
[2024-08-11] MEDS: Ketorolac 30 MG/ML SDV IVPUSH ONE (23:14)
[2024-08-11] MEDS: Cyclobenzaprine 10 MG Tab PO ONE (23:17)
[2024-08-11 23:28] LABS: ALANINE AMINOTRANSFERASE,ALT 25 U/L (12-78); ALBUMIN 4.4 g/dL (3.4-5.0); ALKALINE PHOSPHATASE 38 IU/L (46-116); ANION GAP 7.9 meq/L (7-15); ASPARTATE AMNIOTRANSFERASE,AST 13 U/L (15-37); BILIRUBIN TOTAL 0.3 mg/dL (0.2-1.0); BLOOD UREA NITROGEN,BUN 26 mg/dL (7-18); CALCIUM 9.1 mg/dL (8.5-10.1); CARBON DIOXIDE,CO2 26.1 mmol/L (21.0-32.0); CHLORIDE,CL 103 mmol/L (98-107); CREATININE 1.15 mg/dL (0.51-1.17); GLUCOSE RANDOM 90 mg/dL (70-99); POTASSIUM,K 3.8 mmol/L (3.5-5.1); PROTEIN TOTAL,TP 7.2 g/dL (6.4-8.2); SODIUM,NA 137 mmol/L (136-145)
[2024-08-11 23:32] LABS: ESTIMATED GFR 57 mL/min (>=60)
[2024-08-11 23:38] VITALS: BP 150/92; PULSE 72
[2024-08-11] MEDS: Sodium Chloride 0.9% 10 ML Syringe FLUSH PRN (23:55)
[2024-08-11] MEDS: methylPREDNISolone Sodium Succinate 40 MG/1 ML SDV IVPUSH ONE (23:55)
[2024-08-12] MEDS: Take Home: Ketorolac 10 MG Tab, 4 Tab Pack PO PRN (00:01)
[2024-08-12] MEDS: Take Home: Cyclobenzaprine 10 MG Tab, 4 Tab Pack PO PRN (00:01)
== END 2024-08-12 00:45 | disposition home or self-care (01) ==
LOC: LL.ED 22:32
DX: S39.012A Strain of muscle, fascia and tendon of lower back, initial encounter (principal); I10 Essential (primary) hypertension; E03.9 Hypothyroidism, unspecified; K21.9 Gastro-esophageal reflux disease without esophagitis; Z88.8 Allergy status to other drugs, medicaments and biological substances; Z91.018 Allergy to other foods; Z88.5 Allergy status to narcotic agent; Z88.0 Allergy status to penicillin; Z79.84 Long term (current) use of oral hypoglycemic drugs; Z79.899 Other long term (current) drug therapy; Z90.49 Acquired absence of other specified parts of digestive tract; Z90.710 Acquired absence of both cervix and uterus; X50.0XXA Overexertion from strenuous movement or load, initial encounter
CPT/HCPCS: 36415; 74018; 80053; 81003; 84484; 85025; 86140; 93005; 96374; 96375; 99284; A9270; J1885; J2919; J3490

== ENCOUNTER 2024-10-16 11:50 | Emergency (ER) | payer OTHER ==
[2024-10-16 11:58] VITALS: PULSE 95
[2024-10-16] MEDS: Orphenadrine 60 MG/2 ML Inj IM ONE (13:14)
[2024-10-16 13:38] VITALS: BP 152/82
== END 2024-10-16 13:30 | disposition home or self-care (01) ==
LOC: LL.ED 11:50
DX: G89.29 Other chronic pain (principal); M54.50 Low back pain, unspecified; E11.9 Type 2 diabetes mellitus without complications; Z90.49 Acquired absence of other specified parts of digestive tract; Z90.710 Acquired absence of both cervix and uterus; Z79.899 Other long term (current) drug therapy; Z79.84 Long term (current) use of oral hypoglycemic drugs; Z88.8 Allergy status to other drugs, medicaments and biological substances; Z88.0 Allergy status to penicillin; Z88.5 Allergy status to narcotic agent; Z91.018 Allergy to other foods
CPT/HCPCS: 96372; 99283; 99284; J2360